=== PATIENT | female | born 1945 | race Caucasian/White ===

== ENCOUNTER 2016-11-29 09:04 | Outpatient (CLI) | payer MEDICARE, OTHER | END 2016-11-29 09:05 | disposition home or self-care (01) | DX: G47.33 Obstructive sleep apnea (adult) (pediatric) (principal) | CPT/HCPCS: 99213; G0463 ==

== ENCOUNTER 2016-12-24 21:48 | Outpatient (CLI) | payer MEDICARE, OTHER | END 2016-12-24 21:49 | disposition home or self-care (01) | DX: G47.33 Obstructive sleep apnea (adult) (pediatric) (principal); G47.61 Periodic limb movement disorder; Z68.34 Body mass index [BMI] 34.0-34.9, adult ==

== ENCOUNTER 2017-02-21 13:18 | Outpatient (CLI) | payer MEDICARE, OTHER | END 2017-02-21 13:19 | disposition home or self-care (01) | DX: G47.33 Obstructive sleep apnea (adult) (pediatric) (principal) | CPT/HCPCS: 99213; G0463 ==

== ENCOUNTER 2017-04-07 13:42 | Outpatient (CLI) | payer MEDICARE, OTHER ==
--- NOTE | 2017-04-14 15:46 | Mammography Report ---
DIGITAL SCREENING MAMMOGRAM: 04/07/2017 CLINICAL INDICATION: A 71-year-old, for screening. COMPARISON: Films from [place], [place] dated 03/21/2016, 08/22/2014, 03/27/2013, 01/24/2012. TECHNIQUE: Routine CC and MLO projections were obtained of the breasts. FINDINGS: The breasts again demonstrate scattered fibroglandular densities bilaterally. Circumscribe d nodules are stable bilaterally. No suspicious masses or regions of architectural distortion are constanza ntified. Coarse and punctate, typically benign calcifications are present. IMPRESSION: BENIGN FINDINGS. RECOMMENDATION: ROUTINE ANNUAL SCREENING UNLESS OTHERWISE CLINICALLY INDICATED. BIRADS CATEGORY 2-BENIGN FINDINGS. STANDARD QUALIFYING STATEMENTS 1. This examination was reviewed with the aid of Computer-Aided Detection (CAD). 2. A negative or benign imaging report should not delay biopsy if clinically suspicious findings are present. Consider surgical consultation if warranted. More than 5% of cancers are not identified by i maging. 3. Dense breasts may obscure an underlying neoplasm. JOB #: [id number] EXT JOB #:[id number]
== END 2017-04-07 13:43 | disposition home or self-care (01) ==
LOC: DI.N 13:42
PROVIDERS: ATTEND Family Medicine
DX: Z12.31 Encounter for screening mammogram for malignant neoplasm of breast (principal)
CPT/HCPCS: 77067

== ENCOUNTER 2017-04-25 13:26 | Outpatient (CLI) | payer MEDICARE, OTHER | END 2017-04-25 13:27 | disposition home or self-care (01) | LOC: SC 13:26 | PROVIDERS: ATTEND Nurse Practitioner Family | DX: G47.33 Obstructive sleep apnea (adult) (pediatric) (principal) | CPT/HCPCS: 99214; G0463; 99212 ==

== ENCOUNTER 2017-05-25 11:17 | Outpatient (CLI) | payer MEDICARE, OTHER | END 2017-05-25 11:18 | disposition home or self-care (01) | LOC: SC 11:17 | PROVIDERS: ATTEND Nurse Practitioner Family | DX: G47.33 Obstructive sleep apnea (adult) (pediatric) (principal) | CPT/HCPCS: 99214; G0463; 99212 ==

== ENCOUNTER 2017-06-14 08:00 | Outpatient (CLI) | payer MEDICARE, OTHER ==
[2017-06-14 13:25] LABS: BASOPHILS # (AUTO) 0.1 10^3/uL (0.0-0.1); BASOPHILS % (AUTO) 0.8 %; EOSINOPHILS # (AUTO) 0.2 10^3/uL (0.0-0.7); EOSINOPHILS % (AUTO) 2.8 %; HCT - HEMATOCRIT 38.8 % (37.0-47.0); HGB - HEMOGLOBIN 13.2 g/dL (12.0-16.0); LYMPHOCYTES # (AUTO) 1.6 10^3/uL (1.5-3.5); LYMPHOCYTES % (AUTO) 22.3 %; MEAN CORPUSCULAR HEMOGLOBIN 29.1 pg (27.0-31.0); MEAN CORPUSCULAR VOLUME 85.8 fL (81.0-99.0); MEAN PLATELET VOLUME 8.2 fL (7.9-10.8); MONOCYTES # (AUTO) 0.4 10^3/uL (0.0-1.0); MONOCYTES % (AUTO) 5.1 %; RED BLOOD COUNT 4.52 10^6/uL (4.20-5.40); RED CELL DISTRIBUTION WIDTH 13.9 % (12.0-15.0); UNCORRECTED WHITE BLOOD COUNT 7.2 x10^3/uL; WHITE BLOOD COUNT 7.2 x10^3/uL (4.8-10.8)
[2017-06-14 14:00] LABS: ALBUMIN/GLOBULIN RATIO 1.3 (1.0-2.2); BILIRUBIN,TOTAL 0.5 mg/dL (0.2-1.0); BUN - BLOOD UREA NITROGEN 15 mg/dL (6-20); CALCIUM 8.8 mg/dL (8.5-10.3); CARBON DIOXIDE - CO2 27 mmol/L (21-32); CHLORIDE 105 mmol/L (101-111); CHOL/HDL RATIO 3.4 (<4.4); CHOLESTEROL 193 mg/dL; CREATININE 0.8 mg/dL (0.4-1.0); GFR - MDRD 71 (>89); GLUCOSE 109 mg/dL (70-100); HDL CHOLESTEROL 57 mg/dL; LDL/HDL RATIO 1.9 (<4.4); POTASSIUM 4.3 mmol/L (3.5-5.0); SODIUM 139 mmol/L (135-145); TOTAL PROTEIN 7.2 g/dL (6.7-8.2); TRIGLYCERIDES 130 mg/dL; VLDL CHOLESTEROL 26 mg/dL
== END 2017-06-14 08:01 | disposition home or self-care (01) ==
LOC: LAB.WCP 08:00
PROVIDERS: ATTEND Family Medicine
DX: E78.5 Hyperlipidemia, unspecified (principal)
CPT/HCPCS: 36415; 80053; 80061; 85025

== ENCOUNTER 2017-08-10 11:14 | Outpatient (CLI) | payer MEDICARE, OTHER | END 2017-08-10 11:15 | disposition home or self-care (01) | LOC: SC 11:14 | PROVIDERS: ATTEND Nurse Practitioner Family | DX: G47.33 Obstructive sleep apnea (adult) (pediatric) (principal) | CPT/HCPCS: 99214; G0463; 99212 ==

== ENCOUNTER 2018-03-06 13:18 | Outpatient (CLI) | payer MEDICARE, OTHER | END 2018-03-06 13:19 | disposition home or self-care (01) | LOC: SC 13:18 | PROVIDERS: ATTEND Internal Medicine Pulmonary Disease | DX: G47.33 Obstructive sleep apnea (adult) (pediatric) (principal) | CPT/HCPCS: 99213; G0463; 99212 ==

== ENCOUNTER 2018-04-10 10:55 | Outpatient (CLI) | payer MEDICARE, OTHER ==
--- NOTE | 2018-04-11 17:40 | Mammography Report ---
DIGITAL SCREENING MAMMOGRAM: 04/10/2018 CLINICAL INDICATION: A 72-year-old with history of benign right breast biopsy for screening. COMPARISON: 03/2017, 02/2016, 07/2014, 03/2013, 12/2011. TECHNIQUE: Routine CC and MLO projections were obtained of the breasts. FINDINGS: The breasts again demonstrate scattered fibroglandular densities bilaterally. Coarse and punctate, typically benign calcifications are present. No suspicious masses, clustered microcalcifications, or regions of architectural distortion are identified. IMPRESSION: BENIGN FINDINGS. RECOMMENDATION: Routine annual screening unless otherwise clinically indicated. BI-RADS category 2 benign findings. STANDARD QUALIFYING STATEMENTS 1. This examination was reviewed with the aid of Computed-Aided Detection (CAD). 2. A negative or benign imaging report should not delay biopsy if clinically suspicious findings are present. Consider surgical consultation if warranted. More than 5% of cancers are not identified by imaging. 3. Dense breasts may obscure an underlying neoplasm. TD: 04/11/2018 15:33
== END 2018-04-10 10:56 | disposition home or self-care (01) ==
LOC: DI.N 10:55
PROVIDERS: ATTEND Family Medicine
DX: Z12.31 Encounter for screening mammogram for malignant neoplasm of breast (principal)
CPT/HCPCS: 77067

== ENCOUNTER → 2018-10-16 | Outpatient (CLI) | payer MEDICARE, OTHER ==
[2018-10-16 14:26] LABS: BASOPHILS # (AUTO) 0.1 10^3/uL (0.0-0.1); EOSINOPHILS # (AUTO) 0.2 10^3/uL (0.0-0.7); HGB - HEMOGLOBIN 12.8 g/dL (12.0-16.0); LYMPHOCYTES # (AUTO) 1.7 10^3/uL (1.5-3.5); LYMPHOCYTES % (AUTO) 28.3 %; MEAN CORPUSCULAR HEMOGLOBIN 29.9 pg (27.0-31.0); MEAN CORPUSCULAR HGB CONC 34.2 g/dL (32.0-36.0); MEAN CORPUSCULAR VOLUME 87.4 fL (81.0-99.0); MEAN PLATELET VOLUME 8.3 fL (7.9-10.8); MONOCYTES # (AUTO) 0.4 10^3/uL (0.0-1.0); MONOCYTES % (AUTO) 6.6 %; NEUTROPHILS # (AUTO) 3.6 10^3/uL (1.5-6.6); NEUTROPHILS % (AUTO) 61.1 %; PLT - PLATELET COUNT 247 10^3/uL (130-450); RED BLOOD COUNT 4.28 10^6/uL (4.20-5.40); RED CELL DISTRIBUTION WIDTH 14.1 % (12.0-15.0); WHITE BLOOD COUNT 5.9 x10^3/uL (4.8-10.8)
[2018-10-16 14:52] LABS: ALBUMIN 4.2 g/dL (3.2-5.5); ALBUMIN/GLOBULIN RATIO 1.6 (1.0-2.2); ALKALINE PHOSPHATASE 58 IU/L (42-121); ALT ALANINE AMINOTRANSFERASE 16 IU/L (10-60); AST ASPARTATE AMINOTRANSFERASE 19 IU/L (10-42); BILIRUBIN,TOTAL 0.6 mg/dL (0.2-1.0); BUN - BLOOD UREA NITROGEN 13 mg/dL (6-20); CALCIUM 8.9 mg/dL (8.5-10.3); CARBON DIOXIDE - CO2 26 mmol/L (21-32); CHLORIDE 104 mmol/L (101-111); CHOL/HDL RATIO 2.8 (<4.4); CHOLESTEROL 187 mg/dL; CREATININE 0.7 mg/dL (0.4-1.0); GFR - MDRD 82 (>89); GLUCOSE 104 mg/dL (70-100); HDL CHOLESTEROL 66 mg/dL; LDL CHOLESTEROL,CALCULATED 97 mg/dL; LDL/HDL RATIO 1.5 (<4.4); SODIUM 138 mmol/L (135-145); TOTAL PROTEIN 6.9 g/dL (6.7-8.2); VLDL CHOLESTEROL 24 mg/dL
[2018-10-16 15:14] LABS: HB2 TOTAL 13.4 g/dL; HEMOGLOBIN A1C 0.46 g/dL; HEMOGLOBIN A1C % 5.3 % (4.6-6.2)
== END ==
LOC: LAB.WCP 08:00
PROVIDERS: ATTEND Family Medicine
DX: R73.01 Impaired fasting glucose (principal); E78.5 Hyperlipidemia, unspecified; F32.9 Major depressive disorder, single episode, unspecified; I10 Essential (primary) hypertension
CPT/HCPCS: 36415; 80053; 80061; 83036; 83721; 84443; 85025

== ENCOUNTER 2018-12-07 09:04 | Outpatient (CLI) | payer MEDICARE, OTHER ==
[2018-12-07 13:17] LABS: BASOPHILS # (AUTO) 0.1 10^3/uL (0.0-0.1); EOSINOPHILS # (AUTO) 0.2 10^3/uL (0.0-0.7); EOSINOPHILS % (AUTO) 2.5 %; LYMPHOCYTES # (AUTO) 1.8 10^3/uL (1.5-3.5); LYMPHOCYTES % (AUTO) 25.7 %; MEAN CORPUSCULAR HEMOGLOBIN 29.1 pg (27.0-31.0); MEAN CORPUSCULAR VOLUME 85.6 fL (81.0-99.0); MEAN PLATELET VOLUME 8.4 fL (7.9-10.8); MONOCYTES # (AUTO) 0.4 10^3/uL (0.0-1.0); MONOCYTES % (AUTO) 5.5 %; NEUTROPHILS # (AUTO) 4.6 10^3/uL (1.5-6.6); NEUTROPHILS % (AUTO) 65.3 %; PLT - PLATELET COUNT 249 10^3/uL (130-450); RED BLOOD COUNT 4.81 10^6/uL (4.20-5.40); RED CELL DISTRIBUTION WIDTH 14.1 % (12.0-15.0)
[2018-12-07 13:38] LABS: ALBUMIN 4.1 g/dL (3.2-5.5); ALBUMIN/GLOBULIN RATIO 1.3 (1.0-2.2); BILIRUBIN,TOTAL 0.5 mg/dL (0.2-1.0); CREATININE 0.8 mg/dL (0.4-1.0); TOTAL PROTEIN 7.2 g/dL (6.7-8.2)
== END 2018-12-07 23:59 | disposition home or self-care (01) ==
LOC: LAB.WCP 09:04
PROVIDERS: ATTEND Family Medicine
DX: I10 Essential (primary) hypertension (principal)
CPT/HCPCS: 36415; 80053; 85025

== ENCOUNTER 2018-12-26 13:10 | Outpatient (CLI) | payer MEDICARE, OTHER | END 2018-12-26 13:11 | disposition home or self-care (01) | LOC: SC 13:10 | PROVIDERS: ATTEND Nurse Practitioner Family | DX: G47.33 Obstructive sleep apnea (adult) (pediatric) (principal) | CPT/HCPCS: 99214; G0463; 99212 ==

== ENCOUNTER 2019-04-19 13:33 | Outpatient (CLI) | payer MEDICARE, OTHER ==
--- NOTE | 2019-04-23 13:59 | Mammography Report ---
Reason: SCREENING MAMMO Procedure Date: 04/19/2019 Accession Number: [id number] / [id number] Procedure: MGN - Screening Mammo Dig Bilat CPT Code: FULL RESULT: EXAM: Screening Mammo Dig Bilat DATE: 04/19/2019 1:55 PM CLINICAL HISTORY: Routine screening TECHNIQUE: (B) - Bilateral CC and MLO views were obtained. COMPARISON: 04/10/2018, 04/07/2017, 03/21/2016 and 08/22/2014 PARENCHYMAL PATTERN: (D) - The breasts demonstrate heterogeneously dense fibroglandular parenchyma bilaterally. FINDINGS: There is no significant interval change on the left. There are no suspicious masses, calcifications, or areas of distortion. Scattered benign-appearing calcifications are stable. On the right a retroareolar nodular density is stable. An area of nodularity in the inferior middle third of the breast is more apparent on the current study than previously. It is of uncertain location on the CC projection. Further evaluation of the nodularity by spot compression views and possible ultrasound is suggested. IMPRESSION: Negative examination left breast. Needs additional evaluation right breast. RECOMMENDATION: Additional views and possible ultrasound right breast. BI-RADS CATEGORY: 0 needs additional evaluation STANDARD QUALIFYING STATEMENTS: 1. This examination was not reviewed with the aid of Computer-Aided Detection (CAD). 2. A negative or benign imaging report should not preclude biopsy if clinically suspicious findings are present. 3. Dense breasts may obscure an underlying neoplasm. 4. This examination was reviewed without the aid of 3D breast imaging (tomosynthesis).
== END 2019-04-19 13:34 | disposition home or self-care (01) ==
LOC: DI.N 13:33
DX: Z12.31 Encounter for screening mammogram for malignant neoplasm of breast (principal); R92.8 Other abnormal and inconclusive findings on diagnostic imaging of breast
CPT/HCPCS: 77067

== ENCOUNTER 2019-05-06 09:10 | Outpatient (CLI) | payer MEDICARE, OTHER ==
--- NOTE | 2019-05-06 12:06 | Mammography Report ---
Reason: ABNORMAL MAMMOGRAM Procedure Date: 05/06/2019 Accession Number: [id number] / [id number] Procedure: KEV - Diagnostic Right 3D Rene CPT Code: 71728 FULL RESULT: EXAM: Diagnostic Right 3D Rene; callback right breast ultrasound. DATE: 05/06/2019 9:30 AM CLINICAL HISTORY: Indeterminate nodularity right breast. TECHNIQUE: (B) - Bilateral CC and MLO 3-D Brenda symphysis views were obtained. Targeted right breast ultrasound was performed with special attention given to the lateral hemisphere and lower inner quadrant. COMPARISON: 04/19/2019 08/22/2018, 03/21/2016, 04/07/2017 PARENCHYMAL PATTERN: (D) - The breasts demonstrate heterogeneously dense fibroglandular parenchyma bilaterally. FINDINGS: There are 4-5 small nodular densities seen throughout the right breast on both 2-D and 3-D mammography, including the lateral hemisphere and lower inner quadrant. Because of dense breast parenchyma, they may have been present on previous exams. Spot compression views of the lower inner quadrant make them less apparent. Otherwise on mammography, there are no suspicious masses, calcifications, or areas of distortion. On targeted ultrasound of the right breast, there are numerous subcentimeter benign-appearing cysts and nodules in all quadrants. By the rule of multiplicity, these have high likelihood of being benign. IMPRESSION: Probably Benign. BI-RADS category 3. RECOMMENDATION: (ADDMAM) - Recommend additional mammographic views. Bilateral diagnostic mammography in one year. BI-RADS CATEGORY: (3) - Probably Benign. STANDARD QUALIFYING STATEMENTS: 1. This examination was not reviewed with the aid of Computer-Aided Detection (CAD). 2. A negative or benign imaging report should not preclude biopsy if clinically suspicious findings are present. 3. Dense breasts may obscure an underlying neoplasm. 4. This examination was reviewed with the aid of 3D breast imaging (tomosynthesis).
== END 2019-05-06 09:11 | disposition home or self-care (01) ==
LOC: DI 09:10
PROVIDERS: ATTEND Family Medicine
DX: R92.8 Other abnormal and inconclusive findings on diagnostic imaging of breast (principal)
CPT/HCPCS: 76642; 77065; G0279

== ENCOUNTER 2019-08-23 08:00 | Outpatient (CLI) | payer MEDICARE, OTHER ==
[2019-08-23 12:32] LABS: HEMOGLOBIN A1C 0.59 g/dL
[2019-08-23 12:33] LABS: ALBUMIN/GLOBULIN RATIO 1.3 (1.0-2.2); ALKALINE PHOSPHATASE 56 IU/L (42-121); ALT ALANINE AMINOTRANSFERASE 19 IU/L (10-60); AST ASPARTATE AMINOTRANSFERASE 16 IU/L (10-42); BILIRUBIN,TOTAL 0.7 mg/dL (0.2-1.0); BUN - BLOOD UREA NITROGEN 20 mg/dL (6-20); CARBON DIOXIDE - CO2 27 mmol/L (21-32); CHLORIDE 105 mmol/L (101-111); CHOL/HDL RATIO 2.9 (<4.4); CHOLESTEROL 193 mg/dL; CREATININE 0.8 mg/dL (0.4-1.0); GFR - MDRD 70 (>89); GLUCOSE 112 mg/dL (70-100); HDL CHOLESTEROL 66 mg/dL; LDL CHOLESTEROL,CALCULATED 103 mg/dL; LDL/HDL RATIO 1.6 (<4.4); SODIUM 140 mmol/L (135-145); TOTAL PROTEIN 7.2 g/dL (6.7-8.2); VLDL CHOLESTEROL 24 mg/dL
== END 2019-08-23 23:59 | disposition home or self-care (01) ==
LOC: LAB.WCP 08:00
PROVIDERS: ATTEND Family Medicine
DX: I10 Essential (primary) hypertension (principal); E78.5 Hyperlipidemia, unspecified; R73.01 Impaired fasting glucose
CPT/HCPCS: 36415; 80053; 80061; 83036; 83721; 84443

== ENCOUNTER 2020-04-29 11:29 | Outpatient (CLI) | payer MEDICARE, OTHER ==
--- NOTE | 2020-04-29 16:42 | Ultrasound Report ---
Reason: RENAL CYST Procedure Date: 04/29/2020 Accession Number: [id number] / [id number] Procedure: US - Retroperitoneal CPT Code: Final Report FULL RESULT: PROCEDURE: Retroperitoneal INDICATIONS: RENAL CYST TECHNIQUE: Real-time scanning was performed of the retroperitoneal organs, with image documentation. COMPARISON: 12/25/2018 FINDINGS: Kidneys: Kidneys are normal in size. Right kidney measures 10.6 cm long; left kidney measures 11.8 cm long. Right renal cortical thickness is 0.8 cm; left renal cortical thickness is 1.3 cm. No solid masses, hydronephrosis, or nephrolithiasis. Parapelvic cyst in the right kidney measures 4.4 x 4.8 x 4.4 cm. This has minimally increased since the prior ultrasound where it measured 4.2 x 3.9 x 4.0 cm. There is no solid component or suspicious vascularity. Bladder: Prevoid bladder volume is 426 cc. Postvoid residual is 1.4 cc. The bladder wall is normal thickness. Bilateral ureteral jets were visible. No bladder mass or debris. IMPRESSION: 1. A simple parapelvic cyst measuring now 4.8 cm is redemonstrated in the right kidney. No suspicious features. 2. Normal urinary bladder. Reviewed by: Joy Costa MD on 04/29/2020 4:41 PM PDT Approved by: Joy Costa MD on 04/29/2020 4:41 PM PDT Station ID: [id number]
== END 2020-04-29 11:30 | disposition home or self-care (01) ==
LOC: DI 11:29
PROVIDERS: ATTEND Family Medicine
DX: N28.1 Cyst of kidney, acquired (principal)
CPT/HCPCS: 76770

== ENCOUNTER 2020-05-08 12:25 | Outpatient (CLI) | payer MEDICARE, OTHER ==
--- NOTE | 2020-05-11 12:40 | Mammography Report ---
BILATERAL DIGITAL DIAGNOSTIC MAMMOGRAM 3D/2D: 05/08/2020 CLINICAL: Patient returns today to for one year evaluation of density in the right breast / Left [address] st screening. Comparison is made to exams dated: 05/06/2019 mammogram, 04/19/2019 ultrasound, 04/07/2017 ultrasound, and 05/06/2019 ultrasound, 04/07/2017 mammogram, 08/22/2014 mammogram - [facility]. The tissue of both breasts is heterogeneously dense. This may lower the sensitivity of mammography. Multiple circumscribed small masses bilaterally are not significantly changed. These appear unchanged over multiple exams since 2013. These correlate to multiple complex cysts in the right breast seen o n prior ultrasound. Benign calcifications in both breasts. IMPRESSION: INCOMPLETE: NEEDS ADDITIONAL IMAGING EVALUATION Stable multiple benign-appearing masses bilaterally. Recommend targeted ultrasound to confirm stability of the complicated cysts in the right breast seen on prior ultrasound. If the cysts appear unchanged they can likely be called benign. The patient will be returning on 05/15/2020. This exam was interpreted at Station ID: [id number]. NOTE: For mammograms, a report in lay terms will be sent to the patient. Approximately 15% of breast malignancies will not be visualized mammographically. In the management of a palpable breast mass, a negative mammogram must not discourage biopsy of a clinically suspicious lesion. Electronically Signed By: Stewart Oh M.D. slc/:05/08/2020 14:02:01 ACR BI-RADS Category 0: Incomplete 3340F PARENCHYMAL PATTERN: (D) - The breast(s) demonstrate(s) heterogeneously dense fibroglandular paula orona. BI-RADS CATEGORY: (0) - 0 Ultrasound [id number] Immediate follow-up LATERALITY: (B)
== END 2020-05-08 12:26 | disposition home or self-care (01) ==
LOC: DI 12:25
PROVIDERS: ATTEND Family Medicine
DX: R92.8 Other abnormal and inconclusive findings on diagnostic imaging of breast (principal)
CPT/HCPCS: 77066; G0279; 77062

== ENCOUNTER 2020-05-15 14:22 | Outpatient (CLI) | payer MEDICARE, OTHER ==
--- NOTE | 2020-05-18 12:27 | Ultrasound Report ---
LIMITED ULTRASOUND OF RIGHT BREAST: 05/15/2020 CLINICAL: 6 month follow-up of cysts. Comparison is made to exams dated: 05/08/2020 mammogram, 05/06/2019 mammogram, 05/06/2019 ultrasound, ultrasound, and 04/07/2017 ultrasound - [facility]. Color flow and real-time ultrasound of the right breast 3-9 o'clock, and retroareolar regions were pe rformed. Reddy scale images of the real-time examination were reviewed. There is a 1.1 cm x 0.7 cm x 0.6 cm complicated cyst with an irregular internal wall in the right haylee ast at 7 o'clock middle depth 5 cm from the nipple. This complicated cyst is of mixed echogenicity. This abnormality is more prominent. Color flow imaging demonstrates that there is no vascularity pre sent. There also is a 1.1 cm x 0.5 cm x 0.9 cm oval mass in the right breast at 8 o'clock posterior depth 7 cm from the nipple with the long axis parallel to the skin. This oval mass is heterogeneously echog enic. This abnormality is not significantly changed. Color flow imaging demonstrates that there is no vascularity present. Additionally, there is a benign area of fibrocystic tissue in the right breast at 3 o'clock anterior depth. This abnormality is not significantly changed. Color flow imaging demonstrates that there is no increase in vascularity. In addition, there is a benign 0.6 cm x 0.5 cm x 0.6 cm cyst in the right breast at 4 o'clock middle depth 5 cm from the nipple. This abnormality is not significantly changed. Color flow imaging demon strates that there is no vascularity present. In addition, there is benign duct ectasia in the right breast at 9 o'clock in the retroareolar region . IMPRESSION: PROBABLY BENIGN The 1.1 cm x 0.7 cm x 0.6 cm complicated cyst in the right breast at 7 o'clock middle depth has a dif ferential diagnosis of apocrine metaplasia, a complicated cyst, or complicated cysts and is probably benign. A follow-up ultrasound in 6 months is recommended. The 1.1 cm x 0.5 cm x 0.9 cm oval mass in the right breast at 8 o'clock posterior depth is consistent with apocrine metaplasia or complicated cysts and is probably benign. A follow-up ultrasound in 6 m [facility] is recommended. The area of fibrocystic tissue in the right breast at 3 o'clock anterior depth is benign. The 0.6 cm x 0.5 cm x 0.6 cm cyst in the right breast at 4 o'clock middle depth is benign. The duct ectasia in the right breast at 9 o'clock in the retroareolar region is benign. Findings and recommendations were conveyed to the patient at time of exam. This exam was interpreted at Station ID: [id number]. Electronically Signed By: Joy cruz/:05/15/2020 16:42:12 Ultrasound BI-RADS: 3 Probably benign BI-RADS CATEGORY: (3) - 3 Ultrasound [id number] 6 month follow-up LATERALITY: (R)
== END 2020-05-15 14:23 | disposition home or self-care (01) ==
LOC: DI 14:22
PROVIDERS: ATTEND Family Medicine
DX: N63.13 Unspecified lump in the right breast, lower outer quadrant (principal); N60.11 Diffuse cystic mastopathy of right breast; N60.41 Mammary duct ectasia of right breast
CPT/HCPCS: 76642

== ENCOUNTER 2020-08-12 14:52 | Outpatient (CLI) | payer MEDICARE, OTHER ==
--- NOTE | 2020-08-12 15:29 | SLEEP CARE CONSULTATION ---
Information from patient questionnaire entered by Michaela Mitchell. I have reviewed and concur with the information entered by Michaela Mitchell. This document represents the service I personally performed and the decisions made by , Autumn Oliveros ARNP. History of Present Illness Service Date and Time: 08/12/2020 1452 Previous diagnosis: Moderate, Obstructive Sleep Apnea-Hypopnea Syndrome AHI: 27.2 Reason for follow up: six month Equipment type: CPAP Equipment obtained from: [employer] (getting supplies as needed) Prior sleep studies: Yes Year and Where: 2015 [facility] Type of Sleep Study: Polysomnography HPI additional information: SEA ALAS was diagnosed to have moderate, AHI 27.2, obstructive sleep apnea- hypopnea syndrome and returned today for CPAP therapy annual follow-up. CPAP Compliance Data - Data Reviewed with Patient Average duration of nightly device use: 8 h 4 min Compliance rate %: 98.3 Current pressure setting (cmH2O): 14-20 Humidity settin Heated hose settin Average residual AHI: 3.3 Average large leak: 46 sec Subjective Patient concerns: reports: mask discomfort (hard straps are pulling hair), dry mouth, nose, throat (usually in mornings). denies: aerophagia, air blowing in eyes, mask leak noise, condensation in mask/hose, nasal congestion, epistaxis, other Observed to snore while using device: No Current pressure setting perceived as: comfortable On therapy, patient: reports: sleeping better, awakening more refreshed, being more awake and alert during the day, more rested overall. denies: drowsiness while driving Initial [place] Sleepiness Scale score: 4 (in 2016) Current [place] Sleepiness Scale score: 3 Allergies and Home Medications Drug allergies reviewed: Yes (sulfa abx, kayla) Home medication list reviewed: Yes (no changes) Review of Systems Review of systems same as previous: Yes (no changes) Physical Exam Heart Rate: 83 O2 Saturation: 97 Height: 5 ft 6 in Weight: 222 lb Body Mass Index: 35.8 BMI Classification: Obese Impression and Plan 1. Obstructive Sleep Apnea-Hypopnea Syndrome, moderate, with great treatment compliance and good apnea control. On CPAP therapy, the patient has better sleep quality and is more rested overall. Patient would like to change to mask discussed at last appointment the Namita Betts. She received a prescription for this but the company never sent her this mask. She is having issues with the headgear catching and pulling her hair. She thinks it has been about 4 months since the headgear was replaced. I will order a mask refitting to try the new mask when she is due for a headgear update. She was instructed to call us if there are any issues with getting the right mask. Oral dryness can be reduced by adjusting humidity setting higher or heated hose lower or by adjusting both settings. Printed instructions given on how to change humidity and heated hose settings with rationale explaining why to change. She voiced understanding and agreement with plan of care. Patient's apnea severity and rationale for treatment to reduce apnea, improve sleep quality and reduce cardiovascular and cerebrovascular events was reviewed. I also reviewed the benefit of consistent device use of CPAP for hypertension, gastric reflux, and depression. * Continue auto CPAP pressure at 14-20 cmH2O * Mask refitting to try the [employer]wear Mask * Adjust heated hose or humidity setting to reduce oral dryness * Notify me if snoring with mask or feeling that the pressure is too much or too little * Attempt to lose weight * Call this office if any problems using CPAP * Return for follow up in 1 year, or sooner if concerns arise Visit Type: In Office Time Spent with Patient (minutes): 19 Provider Statement: I spent 100% of the Face to Face Visit with the patient with greater than 50% spent counseling the patient and coordination of care.
== END 2020-08-12 14:53 | disposition home or self-care (01) ==
LOC: SC 14:52
PROVIDERS: ATTEND Nurse Practitioner Family
DX: G47.33 Obstructive sleep apnea (adult) (pediatric) (principal); E66.9 Obesity, unspecified; Z68.35 Body mass index [BMI] 35.0-35.9, adult
CPT/HCPCS: 99213; G0463; 99212

== ENCOUNTER 2020-09-30 08:00 | Outpatient (CLI) | payer MEDICARE, OTHER ==
[2020-09-30 18:34] LABS: BASOPHILS # (AUTO) 0.1 10^3/uL (0.0-0.1); BASOPHILS % (AUTO) 0.8 %; EOSINOPHILS # (AUTO) 0.3 10^3/uL (0.0-0.7); EOSINOPHILS % (AUTO) 2.9 %; HGB - HEMOGLOBIN 13.7 g/dL (12.0-16.0); LYMPHOCYTES # (AUTO) 2.6 10^3/uL (1.5-3.5); LYMPHOCYTES % (AUTO) 28.3 %; MEAN CORPUSCULAR HEMOGLOBIN 29.5 pg (27.0-31.0); MEAN CORPUSCULAR HGB CONC 32.7 g/dL (32.0-36.0); MEAN CORPUSCULAR VOLUME 90.3 fL (81.0-99.0); MEAN PLATELET VOLUME 9.7 fL (7.9-10.8); MONOCYTES # (AUTO) 0.5 10^3/uL (0.0-1.0); MONOCYTES % (AUTO) 5.2 %; NEUTROPHILS # (AUTO) 5.6 10^3/uL (1.5-6.6); PLT - PLATELET COUNT 271 10^3/uL (130-450); RED BLOOD COUNT 4.64 10^6/uL (4.20-5.40); RED CELL DISTRIBUTION WIDTH 13.7 % (12.0-15.0)
[2020-09-30 18:57] LABS: ALBUMIN 4.2 g/dL (3.2-5.5); ALBUMIN/GLOBULIN RATIO 1.2 (1.0-2.2); ALKALINE PHOSPHATASE 56 IU/L (42-121); ALT ALANINE AMINOTRANSFERASE 39 IU/L (10-60); AST ASPARTATE AMINOTRANSFERASE 33 IU/L (10-42); BILIRUBIN,TOTAL 0.7 mg/dL (0.2-1.0); BUN - BLOOD UREA NITROGEN 14 mg/dL (6-20); CALCIUM 9.8 mg/dL (8.5-10.3); CARBON DIOXIDE - CO2 26 mmol/L (21-32); CHLORIDE 101 mmol/L (101-111); CHOL/HDL RATIO 2.9 (<4.4); CHOLESTEROL 201 mg/dL; CREATININE 0.8 mg/dL (0.4-1.0); GLUCOSE 103 mg/dL (70-100); HDL CHOLESTEROL 69 mg/dL; LDL CHOLESTEROL,CALCULATED 105 mg/dL; LDL/HDL RATIO 1.5 (<4.4); SODIUM 140 mmol/L (135-145); TOTAL PROTEIN 7.7 g/dL (6.7-8.2); VLDL CHOLESTEROL 27 mg/dL
[2020-09-30 19:53] LABS: HEMOGLOBIN A1c% 6.8 % (4.27-6.07)
== END 2020-09-30 23:59 | disposition home or self-care (01) ==
LOC: LAB.WCP 08:00
PROVIDERS: ATTEND Family Medicine
DX: R73.01 Impaired fasting glucose (principal); E78.5 Hyperlipidemia, unspecified; I10 Essential (primary) hypertension
CPT/HCPCS: 36415; 80053; 80061; 83036; 83721; 84443; 85025

== ENCOUNTER 2020-11-16 13:52 | Outpatient (CLI) | payer MEDICARE, OTHER ==
--- NOTE | 2020-11-17 09:54 | Ultrasound Report ---
LIMITED ULTRASOUND OF RIGHT BREAST: 11/16/2020 CLINICAL: Follow-up multicystic mass. Comparison is made to exams dated: 05/15/2020 ultrasound, 05/08/2020 mammogram, 05/06/2019 mammogram, ultrasound, 04/19/2019 ultrasound, and 04/07/2017 ultrasound - [facility]. Ultrasound of the right breast 7-8 o'clock region was performed. There is a 1.1 cm x 0.6 cm x 0.6 cm complicated cyst with an irregular internal wall in the right haylee ast at 7 o'clock middle depth 5 cm from the nipple. This complicated cyst is of mixed echogenicity. This abnormality is not significantly changed. Color flow imaging demonstrates that there is no vas cularity present. There also is a 1.1 cm x 0.5 cm x 1.1 cm oval mass in the right breast at 8 o'clock posterior depth 7 cm from the nipple with the long axis parallel to the skin. This oval mass is heterogeneously echog enic. This abnormality is not significantly changed. Color flow imaging demonstrates that there is no vascularity present. IMPRESSION: PROBABLY BENIGN The 1.1 cm x 0.6 cm x 0.6 cm complicated cyst in the right breast at 7 o'clock middle depth has a dif ferential diagnosis of apocrine metaplasia, a complicated cyst, or complicated cysts and is probably benign. Follow-up mammogram and ultrasound in 6 months is recommended. The 1.1 cm x 0.5 cm x 1.1 cm oval mass in the right breast at 8 o'clock posterior depth is consistent with apocrine metaplasia or complicated cysts and is probably benign. Follow-up mammogram and ultra sound in 6 months is recommended. This exam was interpreted at Station ID: [id number]. Electronically Signed By: Jose Manuel Momin acr/:11/16/2020 15:40:59 Ultrasound BI-RADS: 3 Probably benign BI-RADS CATEGORY: (3) - 3 Mammo and US [id number] 6 month follow-up LATERALITY: (B)
== END 2020-11-16 13:53 | disposition home or self-care (01) ==
LOC: DI 13:52
PROVIDERS: ATTEND Family Medicine
DX: R92.8 Other abnormal and inconclusive findings on diagnostic imaging of breast (principal); N60.01 Solitary cyst of right breast; N63.13 Unspecified lump in the right breast, lower outer quadrant

== ENCOUNTER 2020-11-26 06:49 | Outpatient (CLI) | payer MEDICARE, OTHER ==
--- NOTE | 2020-11-26 10:03 | Ultrasound Report ---
PROCEDURE: Abdomen Complete INDICATIONS: FAM HX OF PANCREATIC CA, ABDOMINAL PAIN TECHNIQUE: Real-time scanning was performed of the abdominal and retroperitoneal organs, with image documentatio n. COMPARISON: None. FINDINGS: Liver: Liver is normal in size and mildly diffusely hyperechoic and slightly coarse in echotexture. No discrete mass. Gallbladder: The gallbladder surgically absent Biliary ducts: Intrahepatic bile ducts are non-dilated. Extrahepatic bile duct caliber measures 7 m m. Normal is 6-7 mm or less in diameter, or 10 mm or less post-cholecystectomy. Pancreas: Visualized portions of the pancreas are sonographically normal. Spleen: Spleen is normal in size and homogeneous in echotexture. Kidneys: Kidneys are normal in size and echotexture. Right kidney measures 13.3 cm long; left kidne y measures 11.6 cm long. No hydronephrosis or nephrolithiasis. No solid masses. 4.0 cm right mid p ole parapelvic cyst. Aorta: Visualized aorta is normal in caliber at less than 3 cm. Iliacs: Proximal common iliac arteries are normal in caliber at less than 2.5 cm. IVC: Intrahepatic inferior vena cava is patent. Miscellaneous: No free abdominal fluid. IMPRESSION: 1. The visible portions of the pancreas are normal. 2. Mildly coarse and hyperechoic hepatic parenchyma suggestive steatosis or other intrinsic liver dis ease. 3. Cholecystectomy. 4. 4 cm simple right renal cyst. Reviewed by: Joy Costa MD on 11/26/2020 10:[address] [facility] Approved by: Joy Costa MD on 11/26/2020 10:01 AM PST Station ID: [id number]
== END 2020-11-26 06:50 | disposition home or self-care (01) ==
LOC: DI 06:49
PROVIDERS: ATTEND Family Medicine
DX: R10.9 Unspecified abdominal pain (principal); Z80.0 Family history of malignant neoplasm of digestive organs; N28.1 Cyst of kidney, acquired; Z90.49 Acquired absence of other specified parts of digestive tract

== ENCOUNTER 2020-12-08 08:00 | Outpatient (CLI) | payer MEDICARE, OTHER ==
[2020-12-08 13:30] LABS: CREATININE 0.7 mg/dL (0.4-1.0)
== END 2020-12-08 23:59 ==
LOC: LAB.WCP 08:00
PROVIDERS: ATTEND Orthopaedic Surgery
DX: Z01.812 Encounter for preprocedural laboratory examination (principal); M48.061 Spinal stenosis, lumbar region without neurogenic claudication
CPT/HCPCS: 36415; 82565; 84520

== ENCOUNTER 2021-01-22 08:00 | Outpatient (CLI) | payer MEDICARE, OTHER ==
[2021-01-22 11:53] LABS: BASOPHILS # (AUTO) 0.1 10^3/uL (0.0-0.1); BASOPHILS % (AUTO) 0.7 %; EOSINOPHILS # (AUTO) 0.2 10^3/uL (0.0-0.7); EOSINOPHILS % (AUTO) 3.3 %; HCT - HEMATOCRIT 41.6 % (37.0-47.0); LYMPHOCYTES # (AUTO) 1.8 10^3/uL (1.5-3.5); LYMPHOCYTES % (AUTO) 26.2 %; MEAN CORPUSCULAR HEMOGLOBIN 29.3 pg (27.0-31.0); MEAN CORPUSCULAR HGB CONC 31.3 g/dL (32.0-36.0); MEAN CORPUSCULAR VOLUME 93.7 fL (81.0-99.0); MEAN PLATELET VOLUME 10.2 fL (7.9-10.8); MONOCYTES # (AUTO) 0.4 10^3/uL (0.0-1.0); MONOCYTES % (AUTO) 5.2 %; NEUTROPHILS # (AUTO) 4.3 10^3/uL (1.5-6.6); NEUTROPHILS % (AUTO) 64.5 %; PLT - PLATELET COUNT 254 10^3/uL (130-450); RED BLOOD COUNT 4.44 10^6/uL (4.20-5.40); RED CELL DISTRIBUTION WIDTH 13.8 % (12.0-15.0); WHITE BLOOD COUNT 6.7 x10^3/uL (4.8-10.8)
[2021-01-22 12:08] LABS: ESTIMATED AVERAGE GLUCOSE 126 mg/dL (70-100)
[2021-01-22 12:42] LABS: ALBUMIN 4.3 g/dL (3.2-5.5); ALBUMIN/GLOBULIN RATIO 1.4 (1.0-2.2); ALKALINE PHOSPHATASE 64 IU/L (42-121); ALT ALANINE AMINOTRANSFERASE 17 IU/L (10-60); AST ASPARTATE AMINOTRANSFERASE 18 IU/L (10-42); BILIRUBIN,TOTAL 0.4 mg/dL (0.2-1.0); BUN - BLOOD UREA NITROGEN 12 mg/dL (6-20); CALCIUM 9.2 mg/dL (8.5-10.3); CARBON DIOXIDE - CO2 27 mmol/L (21-32); CHLORIDE 103 mmol/L (101-111); CHOLESTEROL 180 mg/dL; CREATININE 0.8 mg/dL (0.4-1.0); CREATININE,URINE 242.1 mg/dL; GFR - MDRD 70 (>89); GLUCOSE 112 mg/dL (70-100); HDL CHOLESTEROL 60 mg/dL; LDL CHOLESTEROL,CALCULATED 88 mg/dL; LDL/HDL RATIO 1.5 (<4.4); MICROALBUM/CREATININE RATIO,UR 5.4 ug/mg (<30.0); MICROALBUMIN,URINE 1.3 mg/dL (0-300.0); POTASSIUM 3.9 mmol/L (3.5-5.0); SODIUM 139 mmol/L (135-145); TOTAL PROTEIN 7.4 g/dL (6.7-8.2); TRIGLYCERIDES 158 mg/dL; VLDL CHOLESTEROL 32 mg/dL
== END 2021-01-22 23:59 | disposition home or self-care (01) ==
LOC: LAB.WCP 08:00
PROVIDERS: ATTEND Family Medicine
DX: E11.9 Type 2 diabetes mellitus without complications (principal)
CPT/HCPCS: 36415; 80053; 80061; 82043; 82570; 83036; 83721; 85025

== ENCOUNTER 2021-07-15 12:33 | Outpatient (CLI) | payer MEDICARE, OTHER ==
--- NOTE | 2021-07-16 13:12 | Mammography Report ---
BILATERAL DIGITAL DIAGNOSTIC MAMMOGRAM 3D/2D: 07/15/2021 CLINICAL: Short term follow up of the right breast. Comparison is made to exams dated: 11/16/2020 ultrasound, 05/15/2020 ultrasound, 05/08/2020 mammogram, 05/06/2019 mammogram, 05/06/2019 ultrasound, and 04/19/2019 ultrasound - [facility]. The tissue of both breasts is heterogeneously dense. This may lower the sensitivity of mammography. No significant new masses, calcifications, or other findings are seen in either breast. Multiple bilateral focal asymmetries appear similar to the prior studies. Bilateral scattered calcifi cations also demonstrate no significant change. IMPRESSION: INCOMPLETE: NEEDS ADDITIONAL IMAGING EVALUATION Overall stable mammography findings compared to the prior studies. An ultrasound is recommended for followup of the previously described complicated cysts. Ultrasound will be performed immediately following the current exam. This exam was interpreted at Station ID: [id number]. NOTE: For mammograms, a report in lay terms will be sent to the patient. Approximately 15% of breast malignancies will not be visualized mammographically. In the management of a palpable breast mass, a negative mammogram must not discourage biopsy of a clinically suspicious lesion. Electronically Signed By: Cory Pollack M.D. ddp/:07/15/2021 15:02:26 ACR BI-RADS Category 0: Incomplete 3340F PARENCHYMAL PATTERN: (D) - The breast(s) demonstrate(s) heterogeneously dense fibroglandular parenchy ma. BI-RADS CATEGORY: (0) - 0 Ultrasound [id number] Immediate follow-up LATERALITY: (B)
--- NOTE | 2021-07-16 13:13 | Ultrasound Report ---
LIMITED ULTRASOUND OF RIGHT BREAST: 07/15/2021 CLINICAL: 6 month follow-up of cysts, complex. RT breast x 2. Comparison is made to exams dated: 07/15/2021 mammogram, 11/16/2020 ultrasound, 05/15/2020 ultrasound, 05/08/2020 mammogram, 05/06/2019 mammogram, and 05/06/2019 ultrasound - [facility]. Color flow and real-time ultrasound of the right breast 7-8 o'clock region were performed on the area s of interest. Reddy scale images of the real-time examination were reviewed. There is a 0.9 cm x 0.3 cm x 0.7 cm oval mass with irregular margins in the right breast at 7 o'clock middle depth 5 cm from the nipple. This oval mass is hypoechoic but of mixed echogenicity. This ab normality is not significantly changed. Color flow imaging demonstrates that there is no vascularity present. There also is a 1.1 cm x 0.5 cm x 1.1 cm oval cluster of cysts with septated internal clement in the ri ght breast at 8 o'clock middle depth 7 cm from the nipple. This cluster of oval cysts is hypoechoic but of mixed echogenicity. These abnormalities are not significantly changed. Color flow imaging de monstrates that there is no vascularity present. IMPRESSION: BENIGN There is no sonographic evidence of malignancy. The 0.9 cm x 0.3 cm x 0.7 cm oval mass in the right breast at 7 o'clock middle depth again has a diff erential diagnosis that includes apocrine metaplasia or a complicated cyst and is benign given stabil ity over time. The 1.1 cm x 0.5 cm x 1.1 cm cluster of oval cysts in the right breast at 8 o'clock middle depth is a lso benign given stability over time. A 1 year screening mammogram is recommended. This exam was interpreted at Station ID: [id number]. Electronically Signed By: Cory Pollack M.D. ddp/:07/15/2021 16:07:50 Ultrasound BI-RADS: 2 Benign BI-RADS CATEGORY: (2) - 2 RECOMMENDATION: (ANNUAL) - Recommend routine annual screening mammography. [id number] 1 year screening LATERALITY: (B)
== END 2021-07-15 12:34 | disposition home or self-care (01) ==
LOC: DI 12:33
PROVIDERS: ATTEND Internal Medicine
DX: N63.13 Unspecified lump in the right breast, lower outer quadrant (principal); N60.11 Diffuse cystic mastopathy of right breast

== ENCOUNTER 2021-08-17 13:05 | Outpatient (CLI) | payer MEDICARE, OTHER ==
[2021-08-17 13:34] VITALS: BP 108/58
--- NOTE | 2021-08-17 13:34 | SLEEP CARE CONSULTATION ---
Information from patient questionnaire entered by Caity Scott. I have reviewed and concur with the information entered by Caity Scott. This document represents the service I personally performed and the decisions made by , Autumn Oliveros ARNP. History of Present Illness Service Date and Time: 08/17/2021 1305 Previous diagnosis: Moderate, Obstructive Sleep Apnea-Hypopnea Syndrome AHI: 27.2 Reason for follow up: annual Equipment type: CPAP Equipment obtained from: [employer] (getting supplies as needed) Mask style: Nasal Mask brand: Respironics (Dreamwear) Backup mask available: Yes (old mask) Last cushion change: 1 month Prior sleep studies: Yes Year and Where: 2015 [facility] Type of Sleep Study: Polysomnography HPI additional information: SEA ALAS was diagnosed to have moderate, AHI 27.2, obstructive sleep apnea- hypopnea syndrome and returned today for CPAP therapy annual follow-up. Sleep Study - Results Prior sleep studies: Yes Year and Where: 2015 [facility] CPAP Compliance Data - Data Reviewed with Patient Average duration of nightly device use: 8 hours 50 minutes Compliance rate %: 98.9 Current pressure setting (cmH2O): 14-20 Humidity settin Heated hose settin Average residual AHI: 2.7 Average large leak: 7 minutes 48 seconds Subjective Missed days of use due to: reports: other (power outage) Patient concerns: denies: aerophagia, mask discomfort, air blowing in eyes, mask leak noise, condensation in mask/hose, nasal congestion, epistaxis, other Observed to snore while using device: No Current pressure setting perceived as: comfortable On therapy, patient: reports: sleeping better, awakening more refreshed, being more awake and alert during the day, more rested overall. denies: drowsiness while driving Initial [place] Sleepiness Scale score: 4 (in 2016) Current [place] Sleepiness Scale score: 3 Allergies and Home Medications Home medication list reviewed: Yes (no changes) Review of Systems Review of systems same as previous: Yes (no changes) Physical Exam Blood Pressure: 108/58 Cuff size: wrist Heart Rate: 74 O2 Saturation: 97 Height: 5 ft 6 in Weight: 210 lb Body Mass Index: 33.9 BMI Classification: Obese HEENT: No craniofacial malformation Impression and Plan 1. Obstructive Sleep Apnea-Hypopnea Syndrome, moderate, with good treatment compliance and good apnea control. On CPAP therapy, the patient has better sleep quality and is more rested overall. Patient is very satisfied with current therapy and pressures are comfortable.Patient informed of the [employer] recall on devices like the patients machine. Patient was encouraged to register their device online with [employer] for the recall to see if their device is affected. If their device is affected they should start a claim. Patient denies any black particles seen in machine or hoses, any unusual odors coming from device. Patient has not experienced any physical symptoms such as upper airway irritation, headache, skin or eye irritation, asthma, nausea/vomiting, difficulty breathing or chest pain. Patient informed that they may use an inline CPAP filter that they can obtain online to reduce chance of any particles being inhaled or ingested. We discussed thoroughly the health risks of not using the CPAP versus continuing use with the filter in place. If patient is not able to sleep due to waking up choking, gasping for air or other respiratory distress that they may decide to continue using it until it is either replaced or repaired. Patient was encouraged to lose weight for their overall health and to reduce apneas. Patient voiced understanding and agreement with plan. Patient's apnea severity and rationale for treatment to reduce apnea, improve sleep quality and reduce cardiovascular and cerebrovascular events was reviewed. I also reviewed the benefit of consistent device use of CPAP for hypertension, gastric reflux and depression. * Continue auto CPAP pressure at 14-20 cmH2O * Patient to register her device with the recall * Notify me if snoring with mask or feeling that the pressure is too much or too little * Attempt to lose weight * Call this office if any problems using CPAP * Return for follow up in 1 year, or sooner if concerns arise Counseling Topics: Spare mask, Weight loss health impact Visit Type: In Office Time Spent with Patient (minutes): 20 Provider Statement: I spent 100% of the Face to Face Visit with the patient with greater than 50% spent counseling the patient and coordination of care.
== END 2021-08-17 13:06 | disposition home or self-care (01) ==
LOC: SC 13:05
PROVIDERS: ATTEND Nurse Practitioner Family
DX: G47.33 Obstructive sleep apnea (adult) (pediatric) (principal); E66.9 Obesity, unspecified; Z68.33 Body mass index [BMI] 33.0-33.9, adult
CPT/HCPCS: 99213; G0463; 99212

== ENCOUNTER 2021-10-04 08:00 | Outpatient (CLI) | payer MEDICARE, OTHER ==
[2021-10-04 12:05] LABS: ESTIMATED AVERAGE GLUCOSE 131 mg/dL (70-100); HEMOGLOBIN A1c% 6.2 % (4.27-6.07)
[2021-10-04 12:11] LABS: BASOPHILS # (AUTO) 0.1 10^3/uL (0.0-0.1); BASOPHILS % (AUTO) 0.8 %; EOSINOPHILS # (AUTO) 0.2 10^3/uL (0.0-0.7); HCT - HEMATOCRIT 43.1 % (37.0-47.0); HGB - HEMOGLOBIN 13.6 g/dL (12.0-16.0); LYMPHOCYTES % (AUTO) 30.2 %; MEAN CORPUSCULAR HEMOGLOBIN 28.9 pg (27.0-31.0); MEAN CORPUSCULAR HGB CONC 31.6 g/dL (32.0-36.0); MEAN CORPUSCULAR VOLUME 91.5 fL (81.0-99.0); MEAN PLATELET VOLUME 10.2 fL (7.9-10.8); MONOCYTES # (AUTO) 0.5 10^3/uL (0.0-1.0); MONOCYTES % (AUTO) 6.9 %; NEUTROPHILS # (AUTO) 3.9 10^3/uL (1.5-6.6); NEUTROPHILS % (AUTO) 58.8 %; PLT - PLATELET COUNT 259 10^3/uL (130-450); RED BLOOD COUNT 4.71 10^6/uL (4.20-5.40); WHITE BLOOD COUNT 6.6 x10^3/uL (4.8-10.8)
[2021-10-04 12:37] LABS: ALBUMIN 4.6 g/dL (3.2-5.5); ALBUMIN/GLOBULIN RATIO 1.5 (1.0-2.2); ALKALINE PHOSPHATASE 57 IU/L (42-121); ALT ALANINE AMINOTRANSFERASE 18 IU/L (10-60); AST ASPARTATE AMINOTRANSFERASE 16 IU/L (10-42); BILIRUBIN,TOTAL 0.7 mg/dL (0.2-1.0); BUN - BLOOD UREA NITROGEN 21 mg/dL (6-20); CALCIUM 9.4 mg/dL (8.5-10.3); CARBON DIOXIDE - CO2 29 mmol/L (21-32); CHLORIDE 101 mmol/L (101-111); CHOL/HDL RATIO 2.8 (<4.4); CHOLESTEROL 194 mg/dL; CREATININE 0.8 mg/dL (0.4-1.0); GFR - MDRD 70 (>89); GLUCOSE 104 mg/dL (70-100); HDL CHOLESTEROL 69 mg/dL; LDL CHOLESTEROL,CALCULATED 110 mg/dL; LDL/HDL RATIO 1.6 (<4.4); POTASSIUM 4.3 mmol/L (3.5-5.0); SODIUM 143 mmol/L (135-145); TOTAL PROTEIN 7.6 g/dL (6.7-8.2); TRIGLYCERIDES 74 mg/dL; VLDL CHOLESTEROL 15 mg/dL
== END 2021-10-04 23:59 | disposition home or self-care (01) ==
LOC: LAB.WCP 08:00
PROVIDERS: ATTEND Family Medicine
DX: I10 Essential (primary) hypertension (principal); R73.01 Impaired fasting glucose
CPT/HCPCS: 36415; 80053; 80061; 83036; 83721; 85025

== ENCOUNTER 2022-04-15 10:47 | Day surgery (SDC) | payer MEDICARE, OTHER ==
[2022-04-15] MEDS ORDERED: LACTATED RINGERS 1,000 ML IV ONE ×2 (10:52→13:14)
--- NOTE | 2022-04-15 11:41 | ANESTHESIA ---
Pre-Anesthesia VS, & Labs - Diagnosis history of colon polyps - Procedure colonoscopy Vital Signs: Temp Pulse Resp BP Pulse Ox 36.3 C L 75 12 143/68 H 97 04/15/22 10:52 04/15/22 10:52 04/15/22 10:52 04/15/22 10:52 04/15/22 10:52 Height: 5 ft 5 in Weight (kg): 97 kg Body Mass Index: 35.6 BMI Classification: Obese - NPO >8 hours - Is Patient ?: No - Lab Results Current Lab Results: Laboratory Tests 04/15/22 11:31: POC Whole Bld Glucose 113 H Home Medications and Allergies Home Medications: Ambulatory Orders Aspirin [[place] Aspirin] 81 mg PO DAILY 04/14/22 Acyclovir 1 gm MC PRN PRN 05/22/13 Citalopram [CeleXA] 20 mg PO DAILY 05/22/13 Losartan [Cozaar] 50 mg PO DAILY 05/22/13 Metoprolol Succinate 25 mg PO DAILY 05/22/13 Multivitamin [Multivitamins] 1 each PO DAILY 05/22/13 Simvastatin 20 mg PO DAILY 05/22/13 Spironolactone 25 mg PO DAILY 05/22/13 Aspirin [[place] Aspirin] 81 mg PO DAILY 04/14/22 Allergies/Adverse Reactions: Allergies Allergy/AdvReac Type Severity Reaction Status Date / Time Sulfa (Sulfonamide Allergy Intermediate Hives Verified 04/14/22 13:52 Antibiotics) Anes History & Medical History - Anesthetic History Anesthesia Complications: reports: No previous complications - Medical History Cardiovascular: reports: Hypertension, High cholesterol Pulmonary: reports: Sleep apnea, CPAP use Gastrointestinal: reports: None Urinary: reports: None Neuro: reports: None Musculoskeletal: reports: Other Endocrine/Autoimmune: reports: Type 2 diabetes (diet controlled) Skin: reports: None Smoking Status: Never smoker Psychosocial: reports: Depression, Sedative - Surgical History General: reports: Cholecystectomy, Colonoscopy Eyes Ears Nose Throat (EENT): reports: Cataracts Orthopedic: reports: Spine surgery Exam General: Alert, Oriented x3, Cooperative, No acute distress Dental: WNL Mouth Openin Fingerbreadth Neck Mobility: Normal Mallampati classification: II Thyromental Distance: less than 4 cm Mental/Cognitive Status: Alert/Oriented X3, Normal for patient Plan Anesthesia Type: General, Total IV Consent for Procedure(s) Verified and Reviewed: Yes Code Status: Attempt Resuscitation ASA classification: 2-Mild systemic disease Is this case an emergency?: No
[2022-04-15] MEDS ORDERED: PROPOFOL 200 MG/20 ML VIAL IVP ONE (11:56)
[2022-04-15] MEDS ORDERED: PROPOFOL 500 MG/50 ML 500 MG/50 ML VIAL ONE ×2 (11:56→13:15)
[2022-04-15] MEDS ORDERED: GLYCOPYRROLATE 1 MG/5 ML VIAL ONE (12:53)
--- NOTE | 2022-04-15 13:31 | ANESTHESIA POST OP EVALUATION ---
Anesthesia Post Eval - Post Anesthesia Eval Vitals: Last Vital Signs Temp 36.7 C 04/15/22 13:27 Pulse 74 04/15/22 13:27 Resp 16 04/15/22 13:27 BP 93/77 04/15/22 13:27 Pulse Ox 100 04/15/22 13:27 CV Function Including HR & BP: Stable Pain Control: Satisfactory Nausea & Vomiting: Negative Mental Status: Baseline Respiratory Status: Airway Patent Hydration Status: Satisfactory Anesthesia Complications: None
[2022-04-15 13:49] VITALS: BP 134/75
== END 2022-04-15 10:48 | disposition home or self-care (01) ==
LOC: SDS 10:47
PROVIDERS: ATTEND Surgery
PROC: 0DBL8ZZ Excision of Transverse Colon, Via Natural or Artificial Opening Endoscopic (ICD-10-PCS; 2022-04-15)
PROC: 0DBK8ZZ Excision of Ascending Colon, Via Natural or Artificial Opening Endoscopic (ICD-10-PCS; principal; 2022-04-15 12:15)
DX: Z12.11 Encounter for screening for malignant neoplasm of colon (principal); D12.2 Benign neoplasm of ascending colon; D12.3 Benign neoplasm of transverse colon; K57.30 Diverticulosis of large intestine without perforation or abscess without bleeding; E66.9 Obesity, unspecified; Z68.35 Body mass index [BMI] 35.0-35.9, adult; E11.9 Type 2 diabetes mellitus without complications; G47.30 Sleep apnea, unspecified
CPT/HCPCS: 45380; 45385; J7120; 36415

== ENCOUNTER 2022-09-08 13:33 | Outpatient (CLI) | payer MEDICARE, OTHER ==
[2022-09-08 14:17] VITALS: BP 122/70
--- NOTE | 2022-09-08 14:17 | SLEEP CARE CONSULTATION ---
Information from patient questionnaire entered by Blanca De. I have reviewed and concur with the information entered by Blanca De. This document represents the service I personally performed and the decisions made by me, Autumn Oliveros ARNP. History of Present Illness Service Date and Time: 09/08/2022 1333 Previous diagnosis: Moderate, Obstructive Sleep Apnea-Hypopnea Syndrome AHI: 27.2 Reason for follow up: annual (Last Seen 07/2021) Equipment type: CPAP (Dreamstation) Equipment obtained from: [employer] (getting supplies as needed) Mask style: Nasal Mask brand: Respironics (Dreamwear) Backup mask available: No (will keep old mask when replaced) Last cushion change: 1 week Prior sleep studies: Yes Year and Where: 2015 [facility] Type of Sleep Study: Polysomnography HPI additional information: SEA ALAS was diagnosed to have moderate, AHI 27.2, obstructive sleep apnea- hypopnea syndrome and returned today for CPAP therapy annual follow-up. Sleep Study - Results Type of Sleep Study: Polysomnography Prior sleep studies: Yes Year and Where: 2015 [facility] CPAP Compliance Data - Data Reviewed with Patient Average duration of nightly device use: 9 hours 14 mins Compliance rate %: 100 (180/180 days used) Current pressure setting (cmH2O): 14-20 Average residual AHI: 3.2 Central apnea: 1.6 Obstructive apnea: 0.4 Average large leak: 6.4 L/min Subjective Patient concerns: denies: aerophagia, mask discomfort, air blowing in eyes, mask leak noise, condensation in mask/hose, nasal congestion, dry mouth, nose, throat, epistaxis Observed to snore while using device: No Current pressure setting perceived as: comfortable On therapy, patient: reports: sleeping better, awakening more refreshed, being more awake and alert during the day, more rested overall. denies: drowsiness while driving Initial [place] Sleepiness Scale score: 4 (in 2016) Current [place] Sleepiness Scale score: 4 (09-08-2022) Allergies and Home Medications Drug allergies reviewed: Yes (Sulfa) Home medication list reviewed: Yes (no changes) Review of Systems Review of systems same as previous: Yes (no changes; had Covid) Physical Exam Vital signs obtained and entered by: Blanca Egan MA Blood Pressure: 122/70 (LEFT ARM) Cuff size: regular Heart Rate: 81 O2 Saturation: 97 Height: 5 ft 5 in Weight: 221 lb 9.6 oz Body Mass Index: 36.8 BMI Classification: Obese Impression and Plan 1. Obstructive Sleep Apnea-Hypopnea Syndrome, moderate, with good treatment compliance and good apnea control. On CPAP therapy, the patient has better sleep quality and is more rested overall. Patient has significant improvement of their sleep apnea and are satisfied with current CPAP therapy. Patient denies problems with oral dryness, nasal congestion, epistaxis, skin irritation or aerophagia. Patient has a Dreamstation that was last updated in 02/2017. The patients CPAP is over 5 years old and of reasonable use. Thus, the CPAP will be updated. A DWO prescription will be made. Compliance guidelines for new device and follow up discussed. Patient's apnea severity and rationale for treatment to reduce apnea, improve sleep quality and reduce cardiovascular and cerebrovascular events was reviewed. I also reviewed the benefit of consistent device use of CPAP for hypertension, gastric reflux and depression. 2. Obesity, unspecified. Currently patients BMI is 36.8. Obesity increases the risk of apnea, CPAP pressure requirements and overall health risks especially cardiovascular and diabetes. Thus patient is advised to lose weight. * Continue auto CPAP pressure at 14-20 cmH2O * Update machine * Update supplies * Notify me if snoring with mask or feeling that the pressure is too much or too little * Attempt to lose weight * Call this office if any problems using CPAP * Return for follow up one month after obtains new device, or sooner if concerns arise Counseling Topics: Spare mask, Weight loss health impact Visit Type: In Office Time Spent with Patient (minutes): 20 Provider Statement: I spent 100% of the Face to Face Visit with the patient with greater than 50% spent counseling the patient and coordination of care.
== END 2022-09-08 13:34 | disposition home or self-care (01) ==
LOC: SC 13:33
PROVIDERS: ATTEND Nurse Practitioner Family
DX: G47.33 Obstructive sleep apnea (adult) (pediatric) (principal); E66.9 Obesity, unspecified; Z68.36 Body mass index [BMI] 36.0-36.9, adult
CPT/HCPCS: 99213; G0463; 99212

== ENCOUNTER 2023-01-27 07:49 | Outpatient (CLI) | payer MEDICARE, OTHER ==
[2023-01-27 12:28] LABS: BASOPHILS # (AUTO) 0.1 10^3/uL (0.0-0.1); BASOPHILS % (AUTO) 0.8 %; EOSINOPHILS # (AUTO) 0.2 10^3/uL (0.0-0.7); EOSINOPHILS % (AUTO) 3.2 %; HCT - HEMATOCRIT 41.2 % (37.0-47.0); LYMPHOCYTES % (AUTO) 30.9 %; MEAN CORPUSCULAR HEMOGLOBIN 28.6 pg (27.0-31.0); MEAN CORPUSCULAR HGB CONC 31.6 g/dL (32.0-36.0); MEAN CORPUSCULAR VOLUME 90.5 fL (81.0-99.0); MEAN PLATELET VOLUME 9.7 fL (7.9-10.8); MONOCYTES # (AUTO) 0.4 10^3/uL (0.0-1.0); MONOCYTES % (AUTO) 5.3 %; NEUTROPHILS # (AUTO) 3.9 10^3/uL (1.5-6.6); NEUTROPHILS % (AUTO) 59.5 %; PLT - PLATELET COUNT 257 10^3/uL (130-450); RED BLOOD COUNT 4.55 10^6/uL (4.20-5.40); RED CELL DISTRIBUTION WIDTH 13.8 % (12.0-15.0); WHITE BLOOD COUNT 6.6 x10^3/uL (4.8-10.8)
[2023-01-27 12:39] LABS: MICROALBUMIN,URINE 5.7 mg/dL (0-300.0)
[2023-01-27 12:52] LABS: ALBUMIN 4.1 g/dL (3.2-5.5); ALBUMIN/GLOBULIN RATIO 1.3 (1.0-2.2); ALKALINE PHOSPHATASE 56 IU/L (42-121); ALT ALANINE AMINOTRANSFERASE 21 IU/L (10-60); AST ASPARTATE AMINOTRANSFERASE 19 IU/L (10-42); BILIRUBIN,TOTAL 0.6 mg/dL (0.2-1.0); BUN - BLOOD UREA NITROGEN 14 mg/dL (6-20); CALCIUM 9.3 mg/dL (8.5-10.3); CARBON DIOXIDE - CO2 29 mmol/L (21-32); CHLORIDE 105 mmol/L (101-111); CHOLESTEROL 181 mg/dL; CREATININE 0.8 mg/dL (0.4-1.0); GFR - MDRD 70 (>89); GLUCOSE 128 mg/dL (70-100); HDL CHOLESTEROL 61 mg/dL; LDL CHOLESTEROL,CALCULATED 85 mg/dL; LDL/HDL RATIO 1.4 (<4.4); POTASSIUM 4.1 mmol/L (3.5-5.0); SODIUM 142 mmol/L (135-145); TOTAL PROTEIN 7.3 g/dL (6.7-8.2); TRIGLYCERIDES 177 mg/dL; VLDL CHOLESTEROL 35 mg/dL
[2023-01-27 13:02] LABS: ESTIMATED AVERAGE GLUCOSE 137 mg/dL (70-100); HEMOGLOBIN A1c% 6.4 % (4.27-6.07)
== END 2023-01-27 07:50 | disposition home or self-care (01) ==
LOC: LAB.N 07:49
PROVIDERS: ATTEND Family Medicine
DX: I10 Essential (primary) hypertension (principal); E11.9 Type 2 diabetes mellitus without complications
CPT/HCPCS: 36415; 80053; 80061; 82043; 82570; 83036; 83721; 85025

== ENCOUNTER 2023-06-30 09:23 | Outpatient (CLI) | payer MEDICARE, OTHER ==
[2023-06-30 12:45] LABS: BASOPHILS # (AUTO) 0.1 10^3/uL (0.0-0.1); BASOPHILS % (AUTO) 0.8 %; EOSINOPHILS # (AUTO) 0.2 10^3/uL (0.0-0.7); EOSINOPHILS % (AUTO) 2.6 %; HCT - HEMATOCRIT 43.6 % (37.0-47.0); HGB - HEMOGLOBIN 13.8 g/dL (12.0-16.0); LYMPHOCYTES # (AUTO) 2.1 10^3/uL (1.5-3.5); LYMPHOCYTES % (AUTO) 28.4 %; MEAN CORPUSCULAR HEMOGLOBIN 29.1 pg (27.0-31.0); MEAN CORPUSCULAR HGB CONC 31.7 g/dL (32.0-36.0); MEAN CORPUSCULAR VOLUME 91.8 fL (81.0-99.0); MEAN PLATELET VOLUME 9.8 fL (7.9-10.8); MONOCYTES # (AUTO) 0.4 10^3/uL (0.0-1.0); MONOCYTES % (AUTO) 5.5 %; NEUTROPHILS # (AUTO) 4.6 10^3/uL (1.5-6.6); NEUTROPHILS % (AUTO) 62.2 %; PLT - PLATELET COUNT 261 10^3/uL (130-450); RED BLOOD COUNT 4.75 10^6/uL (4.20-5.40); RED CELL DISTRIBUTION WIDTH 13.5 % (12.0-15.0); WHITE BLOOD COUNT 7.4 x10^3/uL (4.8-10.8)
[2023-06-30 13:18] LABS: ESTIMATED AVERAGE GLUCOSE 137 mg/dL (70-100); HEMOGLOBIN A1c% 6.4 % (4.27-6.07)
[2023-06-30 13:26] LABS: ALBUMIN 4.5 g/dL (3.2-5.5); ALBUMIN/GLOBULIN RATIO 1.5 (1.0-2.2); ALKALINE PHOSPHATASE 67 IU/L (42-121); ALT ALANINE AMINOTRANSFERASE 27 IU/L (10-60); AST ASPARTATE AMINOTRANSFERASE 20 IU/L (10-42); BILIRUBIN,TOTAL 0.4 mg/dL (0.2-1.0); BUN - BLOOD UREA NITROGEN 17 mg/dL (6-20); CALCIUM 9.9 mg/dL (8.5-10.3); CARBON DIOXIDE - CO2 30 mmol/L (21-32); CHLORIDE 103 mmol/L (101-111); CHOLESTEROL 190 mg/dL; CREATININE 0.8 mg/dL (0.6-1.3); GFR - MDRD 70 (>89); GLUCOSE 110 mg/dL (74-104); HDL CHOLESTEROL 64 mg/dL; LDL CHOLESTEROL,CALCULATED 98 mg/dL; LDL/HDL RATIO 1.5 (<4.4); POTASSIUM 4.6 mmol/L (3.5-4.5); SODIUM 138 mmol/L (135-145); TOTAL PROTEIN 7.6 g/dL (6.4-8.9); TRIGLYCERIDES 139 mg/dL (48-352); VLDL CHOLESTEROL 28 mg/dL
[2023-06-30 13:29] LABS: CREATININE,URINE 116.7 mg/dL
[2023-06-30 13:33] LABS: MICROALBUMIN,URINE < 0.7 mg/dL
[2023-06-30 13:35] LABS: THYROID STIMULATING HORMONE 1.38 uIU/mL (0.34-5.60)
== END 2023-06-30 09:24 | disposition home or self-care (01) ==
LOC: LAB.N 09:23
PROVIDERS: ATTEND Physician Assistant
DX: E11.9 Type 2 diabetes mellitus without complications (principal); E78.5 Hyperlipidemia, unspecified
CPT/HCPCS: 36415; 80053; 80061; 82043; 82570; 83036; 83721; 84443; 85025